=== PATIENT | female | born 1990 | race Hispanic/Latino ===

== ENCOUNTER 2019-02-07 20:19 | Inpatient (IN) | payer MEDICAID ==
[~2019-02-07] VITALS: Ht 157.5 cm; Wt 65.8 kg
[2019-02-07 20:52] LABS: BASOPHILS % (AUTO) 0.4 % (0.0-5.0); HEMATOCRIT 38.9 % (36-48); LYMPHOCYTES % (AUTO) 23.7 % (21.0-51.0); MEAN CORPUSCULAR HEMOGLOBIN 30.6 pg (27.0-33.0); MEAN CORPUSCULAR HGB CONC 33.6 g/dL (32.0-36.0); MEAN CORPUSCULAR VOLUME 91.1 fL (79-99); MONOCYTES % (AUTO) 7.9 % (3.0-13.0); PLATELET COUNT (AUTO) 183 K/uL (130-400); RED BLOOD CELL COUNT(AUTO) 4.27 MIL/uL (4.00-5.50); RED CELL DISTRIBUTION WIDTH 13.6 % (11.0-15.5); WHITE BLOOD COUNT (AUTO) 8.2 K/uL (4.8-10.8)
[2019-02-07 21:11] LABS: CREATININE 0.8 mg/dL (0.5-1.5); POTASSIUM 3.8 mmol/L (3.5-5.1)
[2019-02-07 21:12] LABS: APPEARANCE,URINE Cloudy (CLEAR); BILIRUBIN,URINE Small (NEGATIVE); COLOR,URINE Dark Yellow (YELLOW); GLUCOSE, URINE (UA) Negative (NEGATIVE); KETONES,URINE Trace mg/dL (NEGATIVE); LEUKOCYTE ESTERASE ,URINE Small (NEGATIVE); NITRATE,URINE Negative (NEGATIVE); OCCULT BLOOD,URINE Negative (NEGATIVE); PH,URINE 6.5 (5.0-8.0); PROTEIN,URINE Trace mg/dL (NEGATIVE)
[2019-02-07 21:17] LABS: ALBUMIN 4.2 g/dL (3.5-5.0); BILIRUBIN,TOTAL 3.7 mg/dL (0.2-1.0); HCG,QUAL RESULT NEGATIVE (NEGATIVE); TOTAL PROTEIN, SERUM 7.3 g/dL (6.0-8.3)
[2019-02-07 21:24] LABS: CALCIUM OXALATE CRYSTALS,UR Few /LPF (None Seen)
[2019-02-07 21:25] LABS: BACTERIA,URINE Few /HPF (None Seen); RBC,URINE None Seen /HPF (0-1)
[2019-02-07] MEDS ORDERED: KETOROLAC TROMETHAMINE 30MG/ML ONE (21:28)
[2019-02-07] MEDS ORDERED: SODIUM CHLORIDE 0.9% 50 ML IV ONE (23:13)
[2019-02-07] MEDS ORDERED: CEFTRIAXONE SODIUM 1 GM ONE (23:13)
[2019-02-07] MEDS: SODIUM CHLORIDE 0.9% 1000ML 1,000 ML IV SCH (23:35)
[2019-02-07] MEDS: CEFTRIAXONE SODIUM 1 GM IVP SCH (23:45)
[2019-02-07] MEDS ORDERED: MORPHINE SULFATE 2 MG/ML 1ML SYG IV PRN (23:45)
[2019-02-07] MEDS ORDERED: ONDANSETRON HCL 4 MG/2 ML VIAL IV PRN (23:45)
[2019-02-07] MEDS ORDERED: ACETAMINOPHEN 325 MG TAB PO PRN (23:45)
[2019-02-08] VITALS (7 sets, daily range): BP systolic 94–118; BP diastolic 50–74
[2019-02-08] MEDS: FAMOTIDINE/PF 20 MG/2 ML VIAL IV SCH ×2 (08:44→20:45)
[2019-02-08] MEDS: SODIUM CHLORIDE 0.9% 1000ML 1,000 ML IV SCH ×2 (08:49→18:48)
[2019-02-08] MEDS: ENOXAPARIN SODIUM 30 MG/0.3 ML SQ SCH (09:00)
[2019-02-08] MEDS ORDERED: GADODIAMIDE 10 MMOL/20 ML VIAL IV ONE (09:55)
[2019-02-08 12:47] LABS: BASOPHILS % (AUTO) 0.5 % (0.0-5.0); EOSINOPHILS % (AUTO) 1.7 % (0.0-8.0); HEMATOCRIT 38.3 % (36-48); LYMPHOCYTES % (AUTO) 37.2 % (21.0-51.0); MEAN CORPUSCULAR HEMOGLOBIN 30.4 pg (27.0-33.0); MEAN CORPUSCULAR HGB CONC 33.8 g/dL (32.0-36.0); MONOCYTES % (AUTO) 7.2 % (3.0-13.0); NEUTROPHILS % (AUTO) 53.4 % (40.0-77.0); PLATELET COUNT (AUTO) 179 K/uL (130-400); RED BLOOD CELL COUNT(AUTO) 4.26 MIL/uL (4.00-5.50); RED CELL DISTRIBUTION WIDTH 13.6 % (11.0-15.5); WHITE BLOOD COUNT (AUTO) 4.7 K/uL (4.8-10.8)
[2019-02-08 12:57] LABS: CREATININE 0.7 mg/dL (0.5-1.5); POTASSIUM 4.3 mmol/L (3.5-5.1)
[2019-02-08 13:05] LABS: INR 1.06 (0.85-1.15); PROTHROMBIN TIME 11.1 SEC (9.6-11.6)
--- NOTE | 2019-02-08 14:02 | NUR ---
DCP CM met with pt discussed dc plans. Pt is independent prior to admission, lives at home with daughter. Denies any equipments/services. Pt feels safe to go bck home, still drives, friend Donte able to assist with transportation as necessary, pt arranges own needs. DC plan to home once stable. CM to cont to follow up. Addendum: 02/08/19 at 1403 by WALE MARINO LVN CM Amended: Links added.
[2019-02-09] VITALS (22 sets, daily range): BP systolic 89–115; BP diastolic 42–68
[2019-02-09] MEDS: CEFTRIAXONE SODIUM 1 GM IVP SCH (01:41)
[2019-02-09] MEDS: SODIUM CHLORIDE 0.9% 1000ML 1,000 ML IV SCH ×2 (03:58→15:35)
--- NOTE | 2019-02-09 06:20 | NUR ---
PATIENT UPDATE PT SLEPT WELL OVERNIGHT, NO COMPLAINTS OF PAIN. CONTINUES WITH HYDRATION WITH NS AT 100 CC/HR. KEPT NPO POST MN FOR ERCP THIS AM WITH MAC. TAKEN TO THE GI LAB BY STAFF AT THIS TIME.
[2019-02-09] MEDS ORDERED: IOHEXOL-350 50ML VIAL IV ONE (06:41)
[2019-02-09] MEDS: INDOMETHACIN 50 MG SUPP.RECT RC SCH (07:00)
[2019-02-09] MEDS ORDERED: LIDOCAINE HCL 2% 20ML ONE (07:10)
[2019-02-09] MEDS ORDERED: SUCCINYLCHOLINE 200MG/10ML SYR ONE (07:10)
[2019-02-09] MEDS ORDERED: PROPOFOL 10 MG/ML 20ML VIAL IV ONE ×2 (07:10)
[2019-02-09] MEDS ORDERED: ONDANSETRON HCL 4 MG/2 ML VIAL ONE (07:39)
--- NOTE | 2019-02-09 08:35 | NUR ---
REPORT GIVEN PATIENT S/P ERCP THE ENTIRE MAIN BILE DUCT WAS DILATED A BILIARY SPHINCTEROTOMY WAS PERFORMED AND THE BILARY TREE WAS SWEPT AND SLUDGE WAS FOUND, PATIENT IS TO AVOID ASPIRIN, AND NONSTEROIDAL ANTI- INFLAMMATORY MEDICINES VS STABLE PATIENT NPO FOR 6 HOURS ( 1400) THEN CLEAR LIQUID DIET ) , SURGICAL CONSULT PLACED FOR DR OCAMPO FOR POSSIBLE LAP HONORIO LEFT'S IN AM , PATIENT ALERT AND DENIES PAIN AT THIS TIME WILL CONTINUE TO MONITOR.
[2019-02-09] MEDS: ENOXAPARIN SODIUM 30 MG/0.3 ML SQ SCH (09:00)
[2019-02-09] MEDS: FAMOTIDINE/PF 20 MG/2 ML VIAL IV SCH ×2 (10:09→22:33)
[2019-02-09] MEDS ORDERED: AMPICILLIN 2GM+NS 100ML 100 ML IV SCH (16:15)
[2019-02-09] MEDS: AMPICILLIN 2GM+NS 100ML 100 ML IV SCH (22:33)
[2019-02-10] MEDS: SODIUM CHLORIDE 0.9% 1000ML 1,000 ML IV SCH ×2 (01:02→11:35)
[2019-02-10] MEDS: AMPICILLIN 2GM+NS 100ML 100 ML IV SCH ×3 (04:08→15:00)
[2019-02-10 04:14] VITALS: BP 105/53
[2019-02-10 04:52] LABS: BASOPHILS % (AUTO) 0.4 % (0.0-5.0); EOSINOPHILS % (AUTO) 2.2 % (0.0-8.0); HEMATOCRIT 34.4 % (36-48); MEAN CORPUSCULAR HEMOGLOBIN 30.3 pg (27.0-33.0); MEAN CORPUSCULAR HGB CONC 33.8 g/dL (32.0-36.0); MEAN CORPUSCULAR VOLUME 89.6 fL (79-99); MONOCYTES % (AUTO) 8.1 % (3.0-13.0); NEUTROPHILS % (AUTO) 45.3 % (40.0-77.0); NUCLEATED RED BLOOD CELLS 0.1 % (0.0-0.19); PLATELET COUNT (AUTO) 152 K/uL (130-400); RED BLOOD CELL COUNT(AUTO) 3.84 MIL/uL (4.00-5.50); RED CELL DISTRIBUTION WIDTH 13.4 % (11.0-15.5); WHITE BLOOD COUNT (AUTO) 4.2 K/uL (4.8-10.8)
[2019-02-10 05:29] LABS: BILIRUBIN,TOTAL 2.5 mg/dL (0.2-1.0); CREATININE 0.7 mg/dL (0.5-1.5); POTASSIUM 3.8 mmol/L (3.5-5.1); TOTAL PROTEIN, SERUM 5.7 g/dL (6.0-8.3)
[2019-02-10] MEDS: INDOMETHACIN 50 MG SUPP.RECT RC SCH (07:00)
[2019-02-10 08:00] VITALS: BP 101/48
--- NOTE | 2019-02-10 08:46 | NUR ---
DR OCAMPO ROUNDED ON PATIENT ORDERS FOR CLEAR LIQUIDS AND POSSIBLE DISCHARGE TODAY .
[2019-02-10] MEDS: FAMOTIDINE/PF 20 MG/2 ML VIAL IV SCH (09:32)
[2019-02-10] MEDS: ENOXAPARIN SODIUM 30 MG/0.3 ML SQ SCH (09:34)
[2019-02-10 12:00] VITALS: BP 106/61
[2019-02-10 16:00] VITALS: BP 104/57
--- NOTE | 2019-02-10 16:00 | NUR ---
DR CROCKER ROUNDED ON PATIENT RECIEVED DISCHARGE ORDERS
--- NOTE | 2019-02-10 17:58 | NUR ---
PATIENT AND FAMILY GIVEN DISCHARGE INSTRUCTIONS AND VERBALIZED UNDERSTANDING PATIENT INSTRUCTED TO FOLLOW A SOFT DIET AND SOFT DIET EDUCATION PRINTED AND REVIEWED WITH PATIENT. PATIENT WILL FOLLOW-UP WITH DR OCAMPO ON TUESDAY AND OFFICE NUMBER GIVEN. IV REMOVED WITH CATHETER INTACT SITE DRESSED WITH BIND-AID NO QUESTIONS OR CONCERNS AT THIS TIME. PATIENT WALKED WITH STAFF TO [facility] AND LEFT WITH FAMILY FOR HOME
== END 2019-02-10 17:50 | disposition home or self-care (01) ==
LOC: EDH 20:19 → OBSVTOIN 20:20 → EDHIP 20:20 → 3BH 02-08 01:17
PROVIDERS: ADMIT Internal Medicine; ATTEND Internal Medicine
PROC: 0F798ZZ Dilation of Common Bile Duct, Via Natural or Artificial Opening Endoscopic (ICD-10-PCS; principal; 2019-02-09)
PROC: BF131ZZ Fluoroscopy of Gallbladder and Bile Ducts using Low Osmolar Contrast (ICD-10-PCS; 2019-02-09)
DX: K80.71 Calculus of gallbladder and bile duct without cholecystitis with obstruction (principal); K85.90 Acute pancreatitis without necrosis or infection, unspecified; N39.0 Urinary tract infection, site not specified; R74.8 Abnormal levels of other serum enzymes; K82.8 Other specified diseases of gallbladder; R17 Unspecified jaundice; K83.8 Other specified diseases of biliary tract
CPT/HCPCS: 36415; 43262; 43264; 74183; 74328; 74330; 76705; 80048; 80053; 81001; 81025; 82150; 83690; 85025; 85610; 87077; 87088; 87186; A9579; C1769; C1773; G0378; J0290; J0330; J0696; J1650; J1885; J2405; J2704; J3490; J7030; Q9967

== ENCOUNTER 2019-02-13 06:34 | Day surgery (SDC) | payer MEDICAID ==
[2019-02-12 15:30] VITALS: BP 102/61
[~2019-02-13] VITALS: Ht 157.5 cm; Wt 66.1 kg
[2019-02-13] VITALS (18 sets, daily range): BP systolic 101–121; BP diastolic 55–78
[2019-02-13] MEDS ORDERED: PROPOFOL 10 MG/ML 20ML VIAL IV ONE (07:37)
[2019-02-13] MEDS ORDERED: LIDOCAINE PF 2% 5ML ABBOJECT ONE (07:37)
[2019-02-13] MEDS ORDERED: ROCURONIUM 10MG/1ML SYR 10 MG/ML ML ONE (07:38)
[2019-02-13] MEDS ORDERED: FENTANYL CITRATE PF 50 MCG/1 ML 2ML VIAL ONE ×2 (07:38)
[2019-02-13] MEDS ORDERED: MIDAZOLAM HCL 1 MG/ML 2ML VIAL ONE (07:38)
[2019-02-13] MEDS ORDERED: ONDANSETRON HCL 4 MG/2 ML VIAL ONE (07:39)
[2019-02-13] MEDS ORDERED: DEXAMETHASONE SOD PHOSPHATE 10MG/ML 1ML VIAL ONE (07:39)
[2019-02-13] MEDS ORDERED: HEPARIN SODIUM 1000UNIT/ML 10ML VIAL ONE (08:17)
[2019-02-13] MEDS ORDERED: GLYCOPYRROLATE 1 MG/5 ML SYRINGE ONE (08:41)
[2019-02-13] MEDS ORDERED: NEOSTIGMINE 5MG/5ML SYR IV ONE (08:41)
[2019-02-13] MEDS: LACTATED RINGERS 1000ML 1,000 ML IV SCH ×2 (08:51→09:17)
--- NOTE | 2019-02-13 10:15 | NUR ---
post op received pt from pacu, s/p lap sekou. bandaids x 4 to abd dry and intact, pt awake and alert ,no distress noted. denies any pain or discomforts. vs stable on arrival
--- NOTE | 2019-02-13 10:56 | NUR ---
dc dc instructions given to pts spouse with rx, instructed to f/u with dr. herrera. abd bandaids x [address] dry and intact. pt denied any pain or discomforts. piv removed site asymptomatic. catheter intact
--- NOTE | 2019-02-13 11:15 | NUR ---
dc pt dc home via [facility],no distress noted. accompanied by spouse,
== END 2019-02-13 11:15 | disposition home or self-care (01) ==
LOC: DAH 06:34
PROVIDERS: ATTEND Surgery
DX: K80.10 Calculus of gallbladder with chronic cholecystitis without obstruction (principal); E66.3 Overweight; Z68.26 Body mass index [BMI] 26.0-26.9, adult; Z79.2 Long term (current) use of antibiotics; Z83.3 Family history of diabetes mellitus
CPT/HCPCS: 47562; 81025; 88304; A4450; A4600; C1769 ×4; J1100; J1644; J2001; J2250; J2405; J2704; J2710; J3010 ×2; J3490; J7030; J7120 ×2